=== PATIENT | male | born 1965 | race Caucasian/White ===

== ENCOUNTER 2016-10-03 11:00 | Emergency (ER) | payer OTHER ==
[2016-10-03 11:19] VITALS: BP 152/83
[2016-10-03] MEDS ORDERED: Ibuprofen TAB* 600 MG PO ONE (11:51)
--- NOTE | 2016-10-03 12:03 | UC ---
Shoulder Pain HPI - HPI Summary HPI Summary: Right shoulder pain after turning a t handle and hearing a pop. He has no prior right shoulder pain. - History of Current Complaint Chief Complaint: UCUpperExtremity Stated Complaint: RIGHT SHOULDER INJURY Time Seen by Provider: 10/03/16 11:27 Hx Obtained From: Patient Onset/Duration: Sudden Onset, Gradual Onset, Lasting Minutes, Lasting Hours Timing: Constant Severity Initially: Moderate Severity Currently: Moderate Character: Sharp, Aching, Stiffness Aggravating Factor(s): Movement, Lifting Alleviating Factor(s): Rest Associated Signs And Symptoms: Positive: Negative - Allergies/Home Medications Allergies/Adverse Reactions: Allergies Allergy/AdvReac Type Severity Reaction Status Date / Time Losartan [From Cozaar] Allergy Rash Verified 10/03/16 11:19 ENVIRONMENTAL/SEASONAL Allergy ITCHY EYES Uncoded 10/03/16 11:19 HAYFEVER PNEUMONIA VACCINE Allergy Swelling Uncoded 10/03/16 11:19 PMH/Surg Hx/FS Hx/Imm Hx Endocrine History Of: Reports: Diabetes - TYPE 2 Cardiovascular History Of: Reports: Hypertension - CONTROL WITH MEDS - Surgical History Surgical History: Yes Surgery Procedure, Year, and Place: CARPAL TUNNEL RELEASE--RIGHT WRIST. DEVIATED SEPTUM CORRECTION - Family History Known Family History: Positive: Unknown - Social History Alcohol Use: Occasionally Alcohol Amount: 2 Substance Use Type: None Smoking Status (MU): Former Smoker Type: Cigarettes Amount Used/How Often: 1 PPD Length of Time of Smoking/Using Tobacco: 25 YEARS Have You Smoked in the Last Year: No When Did the Patient Quit Smoking/Using Tobacco: 2003 Review of Systems All Other Systems Reviewed And Are Negative: Yes Physical Exam Triage Information Reviewed: Yes Appearance: Well-Appearing, Pain Distress - He has mild appearing pain and some wincing with right lateral abduction., Obese Vital Signs: Initial Vital Signs Temp 98.1 F 10/03/16 11:14 Pulse 100 10/03/16 11:14 Resp 16 10/03/16 11:14 BP 152/83 10/03/16 11:14 Pulse Ox 98 10/03/16 11:14 Vital Signs Reviewed: Yes Eye Exam: Normal Eyes: Positive: Conjunctiva Clear. Negative: Conjunctiva Inflamed ENT: Positive: Normal ENT inspection, Hearing grossly normal, Pharynx normal. Negative: Pharyngeal erythema, Nasal congestion, Nasal drainage Neck exam: Normal, Other - no midline neck tenderness. Neck: Positive: Supple Respiratory Exam: Normal Respiratory: Positive: Chest non-tender, Lungs clear, Normal breath sounds Cardiovascular Exam: Normal Cardiovascular: Positive: RRR Abdominal Exam: Normal Abdomen Description: Positive: Nontender Musculoskeletal Exam: Other - right shoulder some pain with active rom but he is able to abduct fully. There is no rotator cuff or biceps tendon tenderness. Active abduction against resistance shows 5/5 strength. apprehension and impingment tests neg. no pain with active forearm suppination and pronation. biceps intact. empty can negative. Musculoskeletal: Positive: Strength Intact, ROM Intact Neurological Exam: Normal Neurological: Positive: Alert Psychological Exam: Normal Skin Exam: Normal Skin: Negative: rashes Shoulder Course/Dx - Course Course Of Treatment: supportive care. Ice. PT. tramadol. light duty. f/u with ortho prn. - Differential Dx/Diagnosis Provider Diagnoses: right shoulder strain. Discharge - Discharge Plan Condition: Good Disposition: HOME Prescriptions: traMADol TAB* [Ultram*] 50 mg PO Q8H PRN #20 tab MDD 3 PRN Reason: Pain Patient Education Materials: Shoulder Sprain (ED) Forms: *Work Release Referrals: ANETA Henley [Primary Care Provider] - Rogelio Kelly MD [Medical Doctor] -
[2016-10-03] MEDS ORDERED: Acetaminophen TAB* 325 MG PO ONE (12:11)
== END 2016-10-03 12:19 | disposition home or self-care (01) ==
LOC: UCCORT 11:00
DX: S46.911A Strain of unspecified muscle, fascia and tendon at shoulder and upper arm level, right arm, initial encounter (principal); X50.0XXA Overexertion from strenuous movement or load, initial encounter; Y93.89 Activity, other specified; Y92.9 Unspecified place or not applicable; E11.9 Type 2 diabetes mellitus without complications; I10 Essential (primary) hypertension; E66.9 Obesity, unspecified; Z88.7 Allergy status to serum and vaccine; Z87.891 Personal history of nicotine dependence
CPT/HCPCS: 99212; A9270-GY; G0463

== ENCOUNTER 2017-02-02 09:56 | Day surgery (SDC) | payer OTHER ==
--- NOTE | 2017-01-28 16:38 | HP ---
PREOPERATIVE HISTORY AND PHYSICAL: DATE OF SURGERY: 02/02/17 DATE OF OFFICE VISIT: 01/27/17 ATTENDING SURGEON: Dr. Verona Greenberg * (DICTATED BY MORGAN ARGUETA) PROCEDURE: Right shoulder arthroscopic excision of distal clavicle, decompression, debridement, and subpectoral biceps tenodesis, possible rotator cuff repair. CHIEF COMPLAINT: Right shoulder pain. HISTORY OF PRESENT ILLNESS: Mr. Epps is a 51-year-old male. He is right- hand dominant, who presents to the clinic for ongoing right shoulder pain due to biceps tendinitis and a possible rotator cuff tear. He failed conservative measures to include injections; therefore, has agreed to undergo a right shoulder arthroscopic excision of distal clavicle, decompression, debridement, and subpectoral biceps tenodesis, and possible rotator cuff repair with Dr. Greenberg on 02/02/17. PAST MEDICAL HISTORY: 1. Diabetes type 2. 2. Hypertension. 3. Sleep apnea. 4. Dyslipidemia. 5. GERD. PAST SURGICAL HISTORY: Carpal tunnel release bilaterally, septoplasty, umbilical hernia. Denies prior complications with anesthesia. MEDICATIONS: 1. Invokana 300 mg 1 by mouth daily. 2. Omeprazole 20 mg 1 by mouth daily. 3. Atorvastatin calcium 10 mg 1 by mouth daily. 4. Fish oil 1200 mg 2 by mouth every day. 5. Aspirin 81 mg 1 by mouth every day. 6. Metformin 500 mg 1 by mouth 3 times a day. 7. Glimepiride 4 mg 2 by mouth every day. 8. Amlodipine besylate 10 mg 1 by mouth every day. 9. Multivitamin 1 by mouth daily. 10. Lisinopril 20 mg 1 by mouth daily. 11. Aleve 220 mg 2 by mouth as needed. 12. Tramadol 50 mg 1 by mouth 3 times a day as needed. ALLERGIES: PNEUMOCOCCAL VACCINE and COZAAR. FAMILY HISTORY: Positive for diabetes. SOCIAL HISTORY: He is a former smoker, he quit in 2003. He reports occasional alcohol. He denies illegal drug use. He is right-hand dominant. REVIEW OF SYSTEMS: General: Negative for fever, chills, or night sweats. No known anesthesia problems. HEENT: Negative for headache, lightheadedness, or syncopal episodes. Integumentary: Negative for abrasions, lesions, or open wounds. Cardiothoracic: Negative for chest pain, palpitations, or edema. Positive for hypertension. Pulmonary: Negative for shortness of breath with exertion, chronic cough or COPD. GI: Negative for nausea, vomiting, diarrhea, or constipation. Positive for GERD. : Negative for history of nocturia, urinary frequency, history of UTIs, or kidney problems. Musculoskeletal: Positive for current complaint. Neuro: Negative for numbness, tingling, or history of seizure, stroke, or epilepsy. Endocrine: Negative for diabetes or thyroid issues. Heme: Negative for easy bruising, anemia, excessive bleeding, history of DVT or PE. Infectious Disease: Negative for history of MRSA, hep C, or HIV. PHYSICAL EXAMINATION GENERAL: Well-developed, well-nourished 51-year-old male in no acute distress. Alert and oriented x3 with appropriate mood and affect. VITAL SIGNS: Height 69.75, weight 250. Pulse 104, blood pressure 140/101, respiratory rate 20, temperature 97.9. BMI 36.1. HEENT: Normocephalic, atraumatic. PERRLA. Throat clear. NECK: Supple. PULMONARY: Lungs clear to auscultation bilaterally. No wheezing, rhonchi, or rales. CARDIO: Regular rate and rhythm. S1 and S2. No murmurs, gallops, or rubs. No edema. ABDOMEN: Positive bowel sounds, soft, nontender. MUSCULOSKELETAL: Right upper extremity, skin is intact. No warmth or erythema. Tenderness to palpation over the bicipital groove and AC joint. Forward flexion and abduction to 170 degrees, external rotation to 60 degrees, internal rotation to the lumbar spine, +4/5 strength to rotator cuff testing. Positive Neer, Blevins, Speed's and Harrison. +2 radial and ulnar pulse. Sensation is intact to light touch distally. NEUROLOGIC: Alert and oriented x3. Cranial nerves grossly intact. Sensation is intact to light touch. STUDIES: Multiple x-rays and MRI revealed no evidence of acute fracture or dislocation. They do show some AC joint arthritis. However, the rotator cuff shows no obvious full-thickness tears. Fluid among the biceps groove indicative of biceps tendonitis with a possible SLAP tear. IMPRESSION: Right shoulder impingement syndrome, possible rotator cuff tear, biceps tendonitis, and acromioclavicular joint arthritis. PLAN: The patient is scheduled to undergo a right shoulder arthroscopic excision of distal clavicle, decompression, debridement, and subpectoral biceps tenodesis with possible rotator cuff repair with Dr. Greenberg on 02/02/17. He has been cleared by his primary care physician. He will return to the office 10 to 14 days postop for followup and suture removal. Percocet will be used for postoperative pain management. MORGAN ARGUETA [id number]/[facility] #: [id number] [facility]PITALClaritza
[~2017-02-02 09:56] MED LIST: Buffered Lidocaine 0.9% SYRIN* 5 ML/SYR SYRINGE INTRADERM ONE
[2017-02-02] MEDS ORDERED: ceFAZolin 2 GM PREMIX (*) 50 ML IVPB ONE (10:15)
[2017-02-02] MEDS ORDERED: Bupivacaine 0.25% SDV* 30 ML ONE (11:39)
[2017-02-02] MEDS ORDERED: Bupivacaine 0.5% W/EPI SDV* 30 ML VIAL ONE (11:47)
[2017-02-02] MEDS ORDERED: Midazolam* 1 MG/ML 5 ML VIAL (5 MG) ONE (12:07)
[2017-02-02] MEDS ORDERED: fentaNYL* 50 MCG/ML 2 ML VIAL (100 MCG VIAL) ONE (12:07)
[2017-02-02] MEDS ORDERED: Propofol* 10 MG/ML 20 ML BTL IV PUSH ONE (12:21)
[2017-02-02] MEDS ORDERED: Lidocaine 2% PF * 5 ML VIAL ONE (12:21)
[2017-02-02] MEDS ORDERED: HYDROmorphone* 1 MG/ML 1 ML SYR IV PRN (13:08)
[2017-02-02] MEDS ORDERED: fentaNYL* 50 MCG/ML 2 ML VIAL (100 MCG VIAL) IV PRN (13:08)
[2017-02-02] MEDS ORDERED: HYDROcodone/ACETAMIN 5-325 MG* 1 TAB PO PRN (13:08)
[2017-02-02] MEDS ORDERED: Ketorolac INJ* 30 MG/ML 1 ML VIAL IV PRN (13:08)
[2017-02-02 15:16] VITALS: BP 132/89
[2017-02-02] MEDS ORDERED: oxyCODONE/Acetamin 5/325 MG* TAB ONE (15:33)
--- NOTE | 2017-02-21 09:30 | OP ---
DATE OF OPERATION: 02/02/17 [facility] DATE OF : 61 SURGEON: Verona Greenberg MD INFECTION CONTROL SPECIALIST: MORGAN Murray ANESTHESIOLOGIST: Jc Moseley MD ANESTHESIA: General interscalene block. PRE-OP DIAGNOSES: 1. Right shoulder high-grade partial thickness rotator cuff tear. 2. Acromioclavicular joint arthritis. 3. Bicipital tendinitis with a SLAP tear. POST-OP DIAGNOSES: 1. High-grade partial thickness bursal and articular-sided tearing of the supraspinatus tendon. 2. Bicipital tendinitis. 3. Acromioclavicular joint arthritis. OPERATIVE PROCEDURE: 1. Right shoulder arthroscopy with extensive glenohumeral debridement. 2. Rotator cuff repair. 3. Subacromial decompression with acromioplasty. 4. Distal clavicle excision. 5. Subpectoral biceps tenodesis. INDICATIONS: Krystian Epps is a 51-year-old male, who sustained a work-related injury in September 2012. He has failed conservative management. We were working with the diagnosis of impingement with AC joint arthritis and bicipital tendinitis. Risks and benefits were discussed at length with the patient including, but not limited to, bleeding; infection; damage to nerves, vessels, surrounding structures; the wound nonhealing; persistent pain; need for further surgery; scarring; stiffness; incomplete relief of symptoms; risk of anesthesia ; DVT; failure of the repair; need for further surgery. IMPLANTS USED: Two Solano and Nephew 4.75 Healicoil, 1 Multifix, and 1 Q-Fix anchor. DESCRIPTION OF PROCEDURE: The patient was greeted in the preoperative area by the attending surgeon. The correct extremity was marked and consent was confirmed. The patient was brought back to operative suite where he was placed in the supine position and underwent interscalene nerve block by anesthesiologist, after which the patient underwent general anesthesia with endotracheal intubation. The patient was then placed in left lateral decubitus position with all bony prominences padded. An axillary roll was placed. His right arm was draped unsterile with 10 pounds of traction. The right shoulder was then prepped and draped in usual sterile fashion beginning with chlorhexidine soap, scrub, and alcohol wipe, and a final prep with ChloraPrep. After appropriate surgical pause indicating site, side, procedure, and administration of antibiotics, the posterolateral portal was made sharply with an 11 blade. The scope was introduced into the joint and the joint was examined. There was abundant erythema and hyperemia in the shoulder and synovitis. The undersurface of the rotator cuff had a high-grade partial thickness tearing. The anterior, posterior, superior labrum had tearing. The inferior recess was intact. The subscapularis was intact. The biceps was subluxed anteriorly and there was erythema in the interval. The anterior portal was made in an outside-in fashion. The shaver was used to debride back the anterior, posterior, superior, and inferior labrum. The biceps was taken through range of motion and found to have erythema. The biceps was then tenotomized. The undersurface of the rotator cuff was examined and debrided back using a shaver. There was a concern for high-grade partial thickness tearing. This was then marked using a 0 PDS suture. Once the debridement was completed inside the glenohumeral joint, attention was directed to subacromial space. The lateral portals were made in outside-in fashion, shaver was used to debride and remove the abundant bursa. The undersurface of the acromion was skeletonized using electrocautery device, which demonstrated a moderate-sized anterolateral spur. This was then debrided back using a portal oval bur, which then led to the AC joint, which had abundant synovitis and spurring. Once the acromioplasty was completed, all the fluid and debris was removed from this portion. Then, attention was directed to the distal clavicle excision. The bur was brought to the anterior portal. 8 mm of the distal clavicle was then carefully removed under arthroscopic visualization. Once all impingement was released, the clavicle was taken through range of motion to make sure that there was no evidence of impingement. 8 mm of the distal clavicle was removed. The loose tissue and debris was debrided back using the shaver blade. Attention was then directed to the rotator cuff. There was high-grade partial thickness bursal flap and tearing as well at the area of the previously marked tendon. It was decided to complete the tear and do a rotator cuff repair. The remaining tendon attached was released using electro-cautery device. The bur, the shaver as well as the rasp were used to prepare the greater tuberosity. Once this was prepared and the calcified cartilage wear was taken off, two 4.75 Healicoils were placed along the medial row. These were then attached to the tendon in a horizontal mattress configuration and tied down using arthroscopic knot tying. One strand of the each knot was then passed through a Multifix anchor, which was then placed laterally to be repaired for lateral row fixation and compression of the cuff to allow for good anabaptism of the supraspinatus tendon. Shoulder was taken through range of motion and was found to be intact. The final images were obtained, all fluid and debris were removed from the shoulder. Attention was directed to the biceps. The biceps bed was airplaned to the right side and the anterior aspect of the shoulder was prepped again using Chlora-Prep. A 15-blade was used to make an incision in line with the biceps tendon encompassing the inferior two-thirds of the pec. Soft tissues were carefully dissected using [place] and then the fascia was identified, the remainder of the dissection was done bluntly. The pec was identified and then retracted proximally. The right angle was clamped to remove the biceps through the wound. The biceps was found to have abundant synovitis and inflammation. The bicipital groove was then prepped in the usual fashion with electrocautery, a red ball rasp, and osteotome. The Q-Fix anchor was deployed with excellent purchase. Suture was passed through the biceps tendon approximately 1 cm proximal to the musculo-tendinous junction. This was passed in Adi-Jose Miguel type configuration, the excess stump was then sharply excised, the biceps was shuttled back to the groove and tied down. The wounds were then copiously irrigated with sterile saline. The portals were closed with 3-0 nylon. The anterior wound was closed in layers with 2-0 Vicryl and 3- 0 Monocryl. The anterior aspect of the wound was injected with 0.25% Marcaine, 20 cc. Sterile dressings were applied. A Cryo/Cuff and UltraSling were then applied. He was awoken from anesthesia and transferred to the PACU in stable condition. POSTOPERATIVE PLAN: He will be nonweightbearing. He will be in a sling and will start physical therapy at 4 weeks. He will be in the sling for a total of 6 weeks with no active motion. He will be allowed elbow, hand, and wrist range of motion. He will be discharged on pain medications and antibiotics. DVT prophylaxis was considered, but deferred due to no previous personal or family history. I will see the patient back in 10 to 14 days. [id number]/[facility] #: [id number] MTDD
== END 2017-02-02 15:42 | disposition home or self-care (01) ==
LOC: OREAST 09:56
PROVIDERS: ATTEND Orthopaedic Surgery
DX: M75.41 Impingement syndrome of right shoulder (principal); M75.111 Incomplete rotator cuff tear or rupture of right shoulder, not specified as traumatic; M75.21 Bicipital tendinitis, right shoulder; M19.011 Primary osteoarthritis, right shoulder; E11.9 Type 2 diabetes mellitus without complications; Z79.84 Long term (current) use of oral hypoglycemic drugs; I10 Essential (primary) hypertension; G47.33 Obstructive sleep apnea (adult) (pediatric); E78.5 Hyperlipidemia, unspecified; K21.9 Gastro-esophageal reflux disease without esophagitis; Z87.891 Personal history of nicotine dependence
CPT/HCPCS: A9270-GY; C1713; C1776; J0690; J2250; J2704; J3010